=== PATIENT | female | born 1965 | race Caucasian/White ===

== ENCOUNTER 2018-07-22 12:18 | Emergency (ER) | payer SELFPAY | END 2018-07-22 14:03 | disposition home or self-care (01) | LOC: EDH 12:18 | DX: J10.1 Influenza due to other identified influenza virus with other respiratory manifestations (principal) | CPT/HCPCS: 71045; 87804 ==

== ENCOUNTER 2018-08-10 16:08 | Emergency (ER) | payer OTHER | END 2018-08-10 18:08 | disposition home or self-care (01) | LOC: EDH 16:08 | DX: S40.011A Contusion of right shoulder, initial encounter (principal); I10 Essential (primary) hypertension; V89.2XXA Person injured in unspecified motor-vehicle accident, traffic, initial encounter; Y93.89 Activity, other specified; Y92.410 Unspecified street and highway as the place of occurrence of the external cause; Y99.8 Other external cause status | CPT/HCPCS: 71046 ==

== ENCOUNTER 2022-07-08 16:20 | Emergency (ER) | payer BC ==
[~2022-07-08] VITALS: Ht 165.1 cm; Wt 86.2 kg
[2022-07-08 18:52] VITALS: BP 137/87
[2022-07-08] MEDS ORDERED: KETOROLAC 30MG VIAL (30MG/ML) ONE (21:08)
[2022-07-08] MEDS ORDERED: KETOROLAC 30MG VIAL (30MG/ML) IM ONE (21:30)
[2022-07-08] MEDS ORDERED: NAPR220T57 PO (21:48)
== END 2022-07-08 21:56 | disposition home or self-care (01) ==
LOC: EDH 16:20
DX: M25.562 Pain in left knee (principal); R22.42 Localized swelling, mass and lump, left lower limb; I10 Essential (primary) hypertension
CPT/HCPCS: 99284; 73562; 76882; 96372; J1885